=== PATIENT | female | born 1960 | race Caucasian/White ===

== ENCOUNTER 2021-03-30 08:19 | Day surgery (SDC) | payer MEDICAID ==
[~2021-03-30] VITALS: Ht 160 cm; Wt 70.3 kg
[2021-03-30] MEDS ORDERED: fentaNYL citrate 0.05 MG/ML VIAL ONE (11:54)
[2021-03-30] MEDS ORDERED: LIDOCAINE 2% 100 MG/5 ML UJET TP ONE (11:54)
[2021-03-30] MEDS ORDERED: MIDAZOLAM 5 MG/5 ML VIAL ONE (11:55)
[2021-03-30] MEDS ORDERED: MIDAZOLAM 2 MG/2 ML VIAL IVP ONE (12:15)
== END 2021-03-30 12:45 | disposition home or self-care (01) ==
LOC: MDS 08:19 → MMU 08:21 → MDS 12:45
PROVIDERS: ATTEND Internal Medicine Gastroenterology
DX: R10.13 Epigastric pain (principal); K29.70 Gastritis, unspecified, without bleeding; K21.9 Gastro-esophageal reflux disease without esophagitis; E78.00 Pure hypercholesterolemia, unspecified; Z90.710 Acquired absence of both cervix and uterus; Z85.3 Personal history of malignant neoplasm of breast; Z79.899 Other long term (current) drug therapy
CPT/HCPCS: 36415; 43239; 86677; J2250; J3010